=== PATIENT | female | born 1940 | race Caucasian/White ===

== ENCOUNTER 2022-01-19 07:44 | Inpatient (IN) ==
[2022-01-19 07:48] VITALS: BMI 21.9
[2022-01-19 08:06] LABS: ABG ALLEN TEST POS; ABG BASE EXCESS 0.9 mmol/L (-2.0-2.0); ABG HCO3 23.8 mmol/L (22-26)
--- NOTE | 2022-01-19 08:20 | DR.SOBA ---
HPI Time Seen Time Seen by Provider: 01/19/22 08:19 Primary Care Physician Primary Care Physician: KIRA HPI Comment HPI Comment: PATIENT IS Complaints Chief Complaint Doctors Comments: INCREASING SOB TIMES ONE DAY. Chief Complaint:: PT. C/O INCREASED SHORTNESS OF BREATH AND BACK PAIN. SHORTNESS OF BREATH BEGAN LAST NIGHT BUT WORSENED THIS MORNING. PT. STATES SHE CAN'T TAKE A DEEP BREATH. PT. WAS DIAGNOSED WITH BILATERAL PE ON WEDNESDAY AND HAS BEEN TAKING ELIQUIS. COVID-19 Coronavirus risk:travel/contact w/high risk person: No Has patient experienced Coronavirus symptoms: Yes Coronavirus symptoms experienced: Shortness of Breath Reviewed Nurses Notes Reviewed: Yes Source History Provided: Patient and Family Member Mode of Arrival Mode of Arrival: Wheelchair Timing Onset of Chief Complaint: 01/18/22 Duration Duration: Days Context Onset:: At Rest History of:: None Currently on:: Neither Prehospital Care:: None Modifying Factors Worsens:: Exertion Improves:: Rest and Sitting Up Associated Signs and Symptoms Associated Signs and Symptoms: Cough, Nasal Congestion and Chest Pain If Chest Pain Quality: Sharp If Cough Cough: Productive and Clear PMH PMH Past Medical History: Yes Past Medical History: Hypertension Past Medical History Comment: PE Past Surgical History: Yes Surgical History: Ortho Surgery Family History History of Family Medical Conditions: No Social History Does patient currently use any type of tobacco product: No Have you used tobacco products in the last 12 months: No Type of Tobacco Use: None Does any household member use tobacco: No Alcohol Use: None Do you use any recreational Drugs:: No Lives With: Spouse Lives Where: Home Travel Risk Coronavirus risk:travel/contact w/high risk person: No Has patient experienced Coronavirus symptoms: Yes Coronavirus symptoms experienced: Shortness of Breath Infectious screening In the last 2 months have you had wt loss of >10#?: NO Have you had fever, night sweats or hemotysis?: No Have you traveled outside the country in the last 6 months?: No Isolation: Standard ROS Review of Systems Constitutional: See HPI, Weakness and Fatigue; negative Fever Eyes: No Symptoms Reported and See HPI ENTM: See HPI, Nose Discharge and Nose Congestion Respiratoy: See HPI, Productive Cough and Short of Breath Cardiovascular: See HPI and Chest Pain Gastrointestinal/Abdominal: No Symptoms Reported Genitourinary: No Symptoms Reported and See HPI; negative Dysuria Neurological: No Symptoms Reported and See HPI PE Vital Signs Vitals: Pulse Rate 88 Respiratory Rate 33 Blood Pressure 132/62 O2 Sat by Pulse Oximetry 98 General Limitations: No Limitations ROR Labs Reviewed Result Diagrams: 01/19/22 07:46 01/19/22 07:46 Laboratory: WBC 15.9 X10^3/uL (3.6-10.0) H 01/19/22 07:46 RBC 4.70 X10^6/uL (3.5-5.4) 01/19/22 07:46 Hgb 14.4 g/dL (12.0-16.0) 01/19/22 07:46 Hct 42.3 % (36.0-47.0) 01/19/22 07:46 MCV 90.1 fL (80.0-100.0) 01/19/22 07:46 MCH 30.7 pg (27.0-34.0) 01/19/22 07:46 MCHC 34.0 g/dL (33.0-35.0) 01/19/22 07:46 RDW 13.4 % (11.6-16.5) 01/19/22 07:46 Plt Count 257 X10^3/uL (150.0-450.0) 01/19/22 07:46 MPV 7.5 fL (7.4-11.0) 01/19/22 07:46 Neut % (Auto) 68.7 % (42.0-75.0) 01/19/22 07:46 Lymph % (Auto) 15.4 % (21.0-51.0) L 01/19/22 07:46 [place] % (Auto) 12.8 % (0.0-13.0) 01/19/22 07:46 Eos % (Auto) 2.7 % (0.9-2.9) 01/19/22 07:46 Baso % (Auto) 0.4 % (0.2-1.0) 01/19/22 07:46 Neut # (Auto) 10.9 x10^3/uL (2.2-4.8) H 01/19/22 07:46 Lymph # (Auto) 2.4 X10^3/uL (1.3-2.9) 01/19/22 07:46 [place] # (Auto) 2.0 x10^3/uL (0.3-0.8) H 01/19/22 07:46 Eos # (Auto) 0.4 x10^3/uL (0.0-0.2) H 01/19/22 07:46 Baso # (Auto) 0.1 X10^3/uL (0.0-0.1) 01/19/22 07:46 Absolute Nucleated RBC 0.0 /100WBC 01/19/22 07:46 PT 18.1 SECONDS (11.8-14.3) 01/19/22 07:46 INR Target Range - 01/19/22 07:46 INR 1.56 (0.8-1.3) H 01/19/22 07:46 APTT 32.0 SECONDS (22.9-36.5) 01/19/22 07:46 PTT Comment - 01/19/22 07:46 Sample Site Rra 01/19/22 08:02 ABG pH 7.480 (7.35-7.45) H 01/19/22 08:02 ABG pCO2 32.0 mmHg (35.0-45.0) L 01/19/22 08:02 ABG pO2 76.0 mmHg (80.0-100.0) L 01/19/22 08:02 ABG HCO3 23.8 mmol/L (22-26) 01/19/22 08:02 ABG O2 Saturation 96.0 % (90-100) 01/19/22 08:02 ABG Base Excess 0.9 mmol/L (-2.0-2.0) 01/19/22 08:02 Davidson Test Pos 01/19/22 08:02 A-a Gradient 34.0 mmHg 01/19/22 08:02 FiO2 21.0 01/19/22 08:02 Blood Gas Comments Pt hortencia well eb 01/19/22 08:02 Sodium 139 mmol/L (136-145) 01/19/22 07:46 Corrected Sodium TNP 01/19/22 07:46 Potassium 3.8 mmol/L (3.5-5.1) 01/19/22 07:46 Chloride 103 mmol/L (98-107) 01/19/22 07:46 Carbon Dioxide 27.4 mmol/L (21-32) 01/19/22 07:46 BUN 12 mg/dL (7-18) 01/19/22 07:46 Creatinine 0.96 mg/dL (0.55-1.02) 01/19/22 07:46 Est GFR (MDRD) Af Amer > 60 (>60) 01/19/22 07:46 Est GFR (MDRD) Non-Af 59 (>60) 01/19/22 07:46 Glucose 108 mg/dL (65-99) H 01/19/22 07:46 Calcium 8.8 mg/dL (8.5-10.1) 01/19/22 07:46 Corrected Calcium 9.5 mg/dL (8.5-10.1) 01/19/22 07:46 Total Bilirubin 0.90 mg/dL (0.2-1.0) 01/19/22 07:46 AST 19 Units/L (15-37) 01/19/22 07:46 ALT 53 Units/L (12-78) 01/19/22 07:46 Alkaline Phosphatase 63 Units/L (46-116) 01/19/22 07:46 Creatine Kinase 18 Units/L (26-192) L 01/19/22 07:46 Troponin I High Sens 7.0 ng/L (4.0-60.0) 01/19/22 07:46 B-Natriuretic Peptide 25.2 pg/mL (0-79) 01/19/22 07:46 Total Protein 6.7 g/dL (6.4-8.2) 01/19/22 07:46 Albumin 3.1 g/dL (3.4-5.0) L 01/19/22 07:46 Globulin 3.6 g/dL (2.5-4.5) 01/19/22 07:46 Albumin/Globulin Ratio 0.9 Ratio (1.1-2.1) L 01/19/22 07:46 Opioid Opioid Risk Tool Age ([place]att box if 16-45): No History of Preadolescent Sexual Abuse: No Total: 0 Total Score Risk Category: Low Risk Copyright: Cr HUERTA predicting aberrant behaviors Discharge Plan Discharge Plan Patient Disposition: 01 HOME, SELF-CARE Condition: Stable Orders to Discharge Patient Discharge Orders: Transfer (Routine); Ordered 01/19/22 Ordered By: TURNER CLARK
[2022-01-19 08:35] LABS: BASOPHILS # (AUTO) 0.1 X10^3/uL (0.0-0.1); BASOPHILS % (AUTO) 0.4 % (0.2-1.0); EOSINOPHILS # (AUTO) 0.4 x10^3/uL (0.0-0.2); EOSINOPHILS % (AUTO) 2.7 % (0.9-2.9); HEMATOCRIT 42.3 % (36.0-47.0); HEMOGLOBIN 14.4 g/dL (12.0-16.0); LYMPHOCYTES # (AUTO) 2.4 X10^3/uL (1.3-2.9); LYMPHOCYTES % (AUTO) 15.4 % (21.0-51.0); MEAN CORPUSCULAR HEMOGLOBIN 30.7 pg (27.0-34.0); MEAN CORPUSCULAR VOLUME 90.1 fL (80.0-100.0); MEAN PLATELET VOLUME 7.5 fL (7.4-11.0); MONOCYTES % (AUTO) 12.8 % (0.0-13.0); NEUTROPHILS # (AUTO) 10.9 x10^3/uL (2.2-4.8); NEUTROPHILS % (AUTO) 68.7 % (42.0-75.0); RED CELL DISTRIBUTION WIDTH 13.4 % (11.6-16.5); WHITE BLOOD COUNT 15.9 X10^3/uL (3.6-10.0)
--- NOTE | 2022-01-19 08:38 | RAD ---
HISTORYSHORT OF BREATHSTUDYCHEST, 1 [id number]/22/2022FINDINGSThe cardiomediastinal silhouette is stable. No acute airspace disease. No pneumothorax or effusion. The bony thorax appears intact.IMPRESSIONNo acute cardiopulmonary disease.Electronically signed by: AVA BURK (Jan 19, 2022 08:37:07)
[2022-01-19 08:45] LABS: ALANINE AMINOTRANSFERASE 53 Units/L (12-78); ALBUMIN 3.1 g/dL (3.4-5.0); ALKALINE PHOSPHATASE 63 Units/L (46-116); ASPARTATE AMINO TRANSFERASE 19 Units/L (15-37); BLOOD UREA NITROGEN 12 mg/dL (7-18); CALCIUM 8.8 mg/dL (8.5-10.1); CARBON DIOXIDE 27.4 mmol/L (21-32); CHLORIDE 103 mmol/L (98-107); COR CA(FOR HYPOALB) 9.5 mg/dL (8.5-10.1); CREATINE KINASE 18 Units/L (26-192); CREATININE 0.96 mg/dL (0.55-1.02); SODIUM 139 mmol/L (136-145); TOTAL PROTEIN 6.7 g/dL (6.4-8.2); eGFR NON BLACK RACES 59 (>60)
[2022-01-19] MEDS ORDERED: FORTAZ or TAZICEF VIAL INJ 2 G in NS 100 ML IV 100 ML IV ONE (10:18)
[2022-01-19] MEDS ORDERED: HEPARIN SODIUM INJ 5000 UNITS IVP ONE ×2 (10:22→17:13)
[2022-01-19] MEDS ORDERED: HEPARIN SODIUM INJ 5000 UNITS ONE (10:25)
[2022-01-19] MEDS ORDERED: FORTAZ or TAZICEF VIAL INJ ONE (10:25)
[2022-01-19] MEDS ORDERED: HEPARIN SODIUM IN D5W 25,000 UNITS/500 ML BAG ONE (10:26)
[2022-01-19] MEDS ORDERED: NS 100 ML IV 100 ML ONE (10:26)
[2022-01-19] MEDS ORDERED: NS 1/2 1,000 ML IV 1,000 ML IV ONE (10:26)
[2022-01-19] MEDS ORDERED: MORPHINE SULFATE INJ 2 MG INJ IVP PRN (10:30)
[2022-01-19] MEDS ORDERED: ZOFRAN INJ 4 MG VIAL IVP PRN (10:30)
[2022-01-19] MEDS: HEPARIN SODIUM IN D5W 25,000 UNITS/500 ML BAG IV PRN (10:57)
[2022-01-19] MEDS: NS 1/2 1,000 ML IV 1,000 ML IV SCH (10:58)
[2022-01-19 11:05] LABS: BILIRUBIN,URINE NEGATIVE (NEGATIVE); BLOOD/HEMOGLOBIN,URINE 5+ (NEGATIVE); GLUCOSE, URINE NEGATIVE (NEGATIVE); KETONES,URINE NEGATIVE (NEGATIVE); LEUKOCYTE ESTERASE ,URINE NEGATIVE (NEGATIVE); NITRITES,URINE NEGATIVE (NEGATIVE); PROTEIN,URINE 1+ (NEGATIVE); UROBILINOGEN,URINE NORMAL (NORMAL)
[2022-01-19 11:27] LABS: APPEARANCE,URINE CLEAR (CLEAR); COLOR,URINE DARK YELLOW (YELLOW)
[2022-01-19] MEDS ORDERED: DUONEB 0.5 MG/3 MG (3 mL) NEB SCH (11:27)
[2022-01-19] MEDS ORDERED: NS 1/2 1,000 ML IV 1,000 ML IV SCH (11:27)
[2022-01-19 11:28] LABS: BACTERIA,URINE NEGATIVE /HPF (NEGATIVE); RBC,URINE 30-50 /HPF (0-3); SQUAMOUS EPITHELIAL CELL,UR RARE /HPF (NEGATIVE)
[2022-01-19 12:03] LABS: ERYTHROCYTE SEDIMENTATION RATE 37 MM/HOUR (0-20)
[2022-01-19] MEDS: FORTAZ or TAZICEF VIAL INJ 1 G in NS 100 ML IV 100 ML IV SCH ×3 (12:04→20:59)
[2022-01-19] MEDS: NORCO 5/325 MG TAB PO PRN (12:42)
[2022-01-19] MEDS ORDERED: KLOR-CON PO PRN (19:28)
[2022-01-19] MEDS ORDERED: KLONOPIN TAB 0.5 MG ONE (19:59)
[2022-01-19] MEDS: K-DUR TAB 20 MEQ PO PRN (20:45)
[2022-01-19] MEDS: KLONOPIN TAB 0.5 MG PO SCH (20:46)
[2022-01-19 20:52] LABS: BILIRUBIN,URINE NEGATIVE (NEGATIVE); BLOOD/HEMOGLOBIN,URINE 5+ (NEGATIVE); GLUCOSE, URINE 3+ (NEGATIVE); KETONES,URINE NEGATIVE (NEGATIVE); LEUKOCYTE ESTERASE ,URINE NEGATIVE (NEGATIVE); NITRITES,URINE NEGATIVE (NEGATIVE); PROTEIN,URINE 1+ (NEGATIVE); UROBILINOGEN,URINE NORMAL (NORMAL)
[2022-01-19 21:16] LABS: APPEARANCE,URINE CLEAR (CLEAR); COLOR,URINE YELLOW (YELLOW)
[2022-01-19 21:23] LABS: BACTERIA,URINE NEGATIVE /HPF (NEGATIVE); RBC,URINE 20-30 /HPF (0-3); SQUAMOUS EPITHELIAL CELL,UR NEGATIVE /HPF (NEGATIVE)
[2022-01-19] MEDS: DUONEB 0.5 MG/3 MG (3 mL) NEB SCH (21:40)
[2022-01-20] MEDS: NS 1/2 1,000 ML IV 1,000 ML IV SCH ×3 (00:24→14:22)
[2022-01-20] MEDS ORDERED: NS 1/2 1,000 ML IV 1,000 ML IV ONE (05:00)
[2022-01-20] MEDS: NORCO 5/325 MG TAB PO PRN (05:11)
[2022-01-20] MEDS: FORTAZ or TAZICEF VIAL INJ 1 G in NS 100 ML IV 100 ML IV SCH ×3 (05:32→21:13)
[2022-01-20 06:02] LABS: BASOPHILS # (AUTO) 0.1 X10^3/uL (0.0-0.1); BASOPHILS % (AUTO) 0.7 % (0.2-1.0); EOSINOPHILS # (AUTO) 0.3 x10^3/uL (0.0-0.2); EOSINOPHILS % (AUTO) 2.3 % (0.9-2.9); HEMATOCRIT 36.4 % (36.0-47.0); HEMOGLOBIN 12.5 g/dL (12.0-16.0); LYMPHOCYTES # (AUTO) 2.1 X10^3/uL (1.3-2.9); LYMPHOCYTES % (AUTO) 15.9 % (21.0-51.0); MEAN CORPUSCULAR HEMOGLOBIN 30.5 pg (27.0-34.0); MEAN CORPUSCULAR HGB CONC 34.4 g/dL (33.0-35.0); MEAN CORPUSCULAR VOLUME 88.8 fL (80.0-100.0); MEAN PLATELET VOLUME 7.2 fL (7.4-11.0); MONOCYTES # (AUTO) 1.6 x10^3/uL (0.3-0.8); NEUTROPHILS # (AUTO) 9.2 x10^3/uL (2.2-4.8); NEUTROPHILS % (AUTO) 69.1 % (42.0-75.0); WHITE BLOOD COUNT 13.4 X10^3/uL (3.6-10.0)
[2022-01-20 06:06] LABS: ALANINE AMINOTRANSFERASE 39 Units/L (12-78); ALBUMIN 2.3 g/dL (3.4-5.0); ALKALINE PHOSPHATASE 53 Units/L (46-116); ASPARTATE AMINO TRANSFERASE 13 Units/L (15-37); BLOOD UREA NITROGEN 7 mg/dL (7-18); CALCIUM 8.1 mg/dL (8.5-10.1); CARBON DIOXIDE 23.4 mmol/L (21-32); CHLORIDE 103 mmol/L (98-107); COR CA(FOR HYPOALB) 9.5 mg/dL (8.5-10.1); COR NA(FOR HYPERGLY) 135 mmol/L (136-145); CREATININE 0.77 mg/dL (0.55-1.02); MAGNESIUM 1.6 mg/dL (1.7-2.9); SODIUM 135 mmol/L (136-145); TOTAL PROTEIN 5.7 g/dL (6.4-8.2); eGFR NON BLACK RACES > 60 (>60)
[2022-01-20] MEDS ORDERED: HEPARIN SODIUM INJ 5000 UNITS IVP ONE (06:27)
[2022-01-20] MEDS ORDERED: HEPARIN SODIUM INJ 5000 UNITS ONE (06:29)
[2022-01-20] MEDS: DUONEB 0.5 MG/3 MG (3 mL) NEB SCH ×3 (06:35→21:09)
[2022-01-20] MEDS: MAGNESIUM SULFATE 1 GRAM/100 mL PREMIX 1 G/100 ML BAG IV PRN ×2 (06:43→08:53)
[2022-01-20] MEDS: K-DUR TAB 20 MEQ PO PRN (06:45)
[2022-01-20] MEDS: CRESTOR TAB 10 MG PO SCH (08:54)
[2022-01-20] MEDS: TOPROL XL PO SCH (08:56)
--- NOTE | 2022-01-20 09:46 | DR.H&P ---
H&P - History & Physical for Day of: H&P Date: 01/19/22 - Chief Complaint Chief Complaint: SOB, BACK PAIN, COVID POSITIVE, MULTIPLE PULMONARY EMBOLI - History of Present Illness History of Present Illness: IS A 81 YEAR OLD PATIENT OF OURS. SHE PRESENTED TO THE ER WITH COMPLAINTS OF INCREASING SHORTNESS OF BREATH AND MID TO LOWER BACK PAIN. SHE REPORTS THAT SHORTNESS OF BREATH STARTED ON 01/16/22, BUT HAS PROGRESSIVELY GOTTEN WORSE. SHE WAS RECENTLY DIAGNOSED WITH COVID AND MULTIPLE PULMONARY EMBOLI. CHEST CTA ON 01/16 REVEALED: Exam positive for incompletely occlusive acute pulmonary thromboembolic disease involving the arterial branches to the right upper lobe and left upper lobe and and segmental branches in the right upper lobe and bilateral lower lobes. Two right lower lobe pulmonary nodules measuring 2.[address] follow-up in 1 year. Old granulomatous disease. 2.2 x 1.6 cm right breast mass requiring further evaluation with mammography and likely sonography at the time of mammography. SHE WAS STARTED ON ELIQUIS AND DISCHARGED HOME FROM THE ER AT THAT TIME, SHE REFUSED ADMISSION. UPON ARRIVAL TO THE ER TODAY, EXAMINATION REVEALED MODERATE TENDERNESS TO THE THORACIC AND LUMBAR SPINE. PATIENT REPORTS THAT PAIN IS WORSE WITH MOVEMENT OR ACTIVITY. PAIN IS USUALLY SOME BETTER WITH REST. VITALS WERE: 98.2-96-23-97%-162/74. LABS WERE OBTAINED. WBC 15.9, RBC 4.70, HGB 14.4, HCT 42.3, PLT COUNT 257, INR 1.56, SODIUM 139, POTASSIUM 3.8, CHLORIDE 103, BUN 12, CREATININE 0.96, GLUCOSE 108, CALCIUM 8.8, AST 19, ALT 53, ALK PHOS 63, TOTAL PROTEIN 6.7, ALBUMIN 3.1, CREATININE 18, CRP 88.70. TROPONIN WAS NEGATIVE. ABG WAS OBTAINED AND REVEALED: PH 7.480, PC02 32, P02 76, HC03 23.8, 02 SAT 96, A-A GRADIENT 34, FI02 21.0. COVID-19 POSITIVE. URINALYSIS REVEALED: WBC NONE SEEN, RBC 30-50, BACTERIA NEGATIVE, LEUKOCYTES NEGATIVE, BLOOD 5+. A CHEST XRAY WAS OBTAINED AND REVEALED: The cardiomediastinal silhouette is stable. No acute airspace disease. No pneumothorax or effusion. The bony thorax appears intact. EKG REVEALED NORMAL SINUS RHYTHM WITH HR 93. SHE WAS ADMITTED TO THE HOSPITAL FOR FURTHER EVALUATION AND TREATMENT OF BILATERAL PULMONARY EMBOLISM AND RESPIRATORY DISTRESS. DUE TO HEMATURIA AND LOW BACK PAIN, WE WILL OBTAIN AN ABDOMEN/PELVIS CT WITHOUT CONTRAST TO RULE OUT RENAL CALCULI. WE WILL ALSO OBTAIN A THORACIC AND LUMBAR SPINE CT DUE TO PERSISTENT BACK PAIN. SHE WAS STARTED ON A HEPARIN DRIP, ZOFRAN 4MG IV Q8H PRN, 1/2NS AT 50 ML/HR, FORTAZ 1G IV Q8H, NORCO 5/325MG IV Q6H PRN, CRESTOR 5MG HS ON MON,WED,FRI, TOPROL XL 25MG PO DAILY, COLACE 200MG PO DAILY, AND THE POTASSIUM AND MAGNESIUM PROTOCOLS. OTHERWISE, WE PLAN TO FOLLOW-UP WITH AM LABS AND CONTINUE TO MONITOR. TIME SPENT ON CLINICAL ASSESSMENT, REVIEWING LABS AND IMAGING, DECISION MAKING, AND DOCUMENTATION GREATER THAN 75 MINUTES. - Past Medical History Past Medical History: Dyslipidemia, Hypertension - Past Surgical History Surgical History: Cholecystectomy, Ortho Surgery - Family History Family Medical History: Hypertension - Social History Does patient currently use any type of tobacco product: No Have you used tobacco products in the last 12 months: No Type of Tobacco Use: None Does any household member use tobacco: No Alcohol Use: None Drug Use: None - Medications Home Medications: sulfamethoxazole [From Bactrim] Allergy (Verified 01/19/22 07:48) trimethoprim [From Bactrim] Allergy (Verified 01/19/22 07:48) CONTINUE taking the following medications apixaban 5 mg tablet (Eliquis) 10 mg PO BID 01/19/22 [History] clonazepam 0.5 mg tablet 0.5 mg PO QHS 01/19/22 [History] metoprolol succinate 25 mg tablet,extended release 24 hr 1 tab PO QDAY 01/19/22 [History] rosuvastatin 5 mg tablet 1 tab PO .3XW 01/19/22 [History] - Review of Systems Constitutional: No Symptoms Reported Eyes: No Symptoms Reported ENT: No Symptoms Reported Respiratory: See HPI, Cough, Dry, Shortness of Breath, SOB with Excertion Cardiovascular: No Symptoms Reported Gastrointestinal: No Symptoms Reported Genitourinary: Hematuria Musculoskeletal: See HPI, Back Pain Skin: No Symptoms Reported Neurological: No Symptoms Reported - Physical Exam Vital Signs: Temperature 97.9 F Pulse Rate 98 Respiratory Rate 20 Blood Pressure 149/69 O2 Sat by Pulse Oximetry 95 Oriented: Normal Eyes: Normal Ear: Normal Nose: Normal Throat: Normal Respiratory: Diminished Throughout Cardiovascular: Normal : Normal Auscultation: Bowel Sounds: Normal Palpation: Normal Tenderness: Normal Skin: Normal Musculoskeletal: Back:Thoracic, Back:Lumbar, Tender Psychiatric: Normal Mood Description: Calm Affect: Normal Speech Pattern: Clear - Assessment/Plan (1) Multiple pulmonary emboli Status: Acute Plan: ADMIT, HEPARIN DRIP, ZOFRAN 4MG IV Q8H PRN, 1/2NS AT 50 ML/HR, FORTAZ 1G IV Q8H, NORCO 5/325MG IV Q6H PRN, CRESTOR 5MG HS ON MON,WED,FRI, TOPROL XL 25MG PO DAILY, COLACE 200MG PO DAILY, AND THE POTASSIUM AND MAGNESIUM PROTOCOLS (2) COVID-19 Status: Acute (3) Acute bronchitis Qualifiers: Bronchitis organism: unspecified organism Qualified Code(s): J20.9 - Acute bronchitis, unspecified Status: Acute (4) HTN (hypertension) Qualifiers: Hypertension type: primary hypertension Qualified Code(s): I10 - Essential (primary) hypertension Status: Chronic (5) Hyperlipidemia Qualifiers: Hyperlipidemia type: mixed hyperlipidemia Qualified Code(s): E78.2 - Mixed hyperlipidemia Status: Chronic - Allergies Allergies/Adverse Reactions: Allergies Allergy/AdvReac Type Severity Reaction Status Date / Time sulfamethoxazole Allergy Verified 01/19/22 07:48 [From Bactrim] trimethoprim [From Bactrim] Allergy Verified 01/19/22 07:48
[2022-01-20] MEDS: COLACE CAP 100 MG PO SCH (10:30)
--- NOTE | 2022-01-20 10:31 | CT ---
HISTORYINTRACTABLE BACK PAINSTUDYTHORACIC SPINE W/O CONCOMPARISONNoneTECHNIQUEAxial images through the thoracic spine were performed without contrast. CT scan was performed following ALARA (As low as Reasonably Achievable).Coronal and Sagittal reformatted images were performed.FINDINGSThere is preservation of the thoracic kyphosis, there is no evidence of acute fractures. The included lungs demonstrate biapical fibrosis right more than left, there is also bibasal linear radiopacities probably atelectasisNo adrenal masses, there is a right renal cyst with Hounsfield units of 6 measuring 2.6 centimetersNo retroperitoneal masses. The vertebral height and disc spaces are preserved. There is no evidence of central osseous spinal canal stenosis. No dominant severe neural foraminal stenosis.There is no anterolisthesis or retrolisthesis.IMPRESSIONNo acute fractures of the thoracic spine. Vertebral height and disc spaces are preserved with minimal vacuum phenomenon at T5-T6.Electronically signed by: Sindi Mcgee (Jan 20, 2022 10:29:40)
--- NOTE | 2022-01-20 10:38 | CT ---
HISTORYINTRACTABLE BACK PAINSTUDYLUMBAR SPINE W/O CONCOMPARISONNoneTECHNIQUEMultiple axial images of the lumbar spine were obtained from the thoracolumbar junction to the sacrum without the administration of IV contrast. Sagittal and coronal reformats were performed and reviewed. Dose reduction techniques including Automated Exposure Control (AEC) and adjustment of mA and kV were utilized.FINDINGSAlignment of the lumbar spine is maintained. No evidence for acute fracture or subluxation can be identified. No central canal compromise by bony osteophyte formation or soft tissue components can be identified. Mild degenerative disc changes are noted at L3 through S1 however there is no significant stenosis appreciated. There is some [id number] neural foraminal narrowing and central canal stenosis at L5-S1.. The surrounding soft tissues demonstrate probable renal cyst.IMPRESSIONNo acute bony findings are identified.Electronically signed by: GREGORY ABBASI (Jan 20, 2022 10:36:46)
--- NOTE | 2022-01-20 10:41 | CT ---
HISTORYSTONE SEARCHSTUDYABDOMEN/PELVIS W/O CONCOMPARISONNone availableTECHNIQUE: Axial images through the abdomen and pelvis were performed without contrast.CT scan was performed following ALARA (As low as Reasonably Achievable).Coronal and Sagittal reformatted images were performed.FINDINGSThe lung bases demonstrate increase of the interstitial markings with some subpleural radiopacities likely subsegmental atelectasis with areas of fibrosis.In the right breast, there is a well-circumscribed 2.3 x 1.3 centimeter nodule follow-up with ultrasound recommended.The liver demonstrate no focal lesions for noncontrast CT. The spleen is nonenlarged.Patient is status post cholecystectomy. The pancreas demonstrate no focal abnormality, there is no intra or extrahepatic biliary dilatation, the stomach is no significant distended.There is no adrenal masses. There are bilateral normal-sized kidneys without hydronephrosis, no renal calculus, no evidence of obstructive ureteral stones, there is a lower pole right renal cyst measuring approximately 2.6 centimeter, there is also a renal cysts in the left lower pole measuring approximately 2 centimeters. There are scattered parapelvic cysts in the left kidneyNo retroperitoneal jazz, s no focal dilatation of the abdominal aorta, there is no colitis, the terminal ileum is unremarkable, no appendicitis.Pelvis: No free fluid, the urinary bladder is mildly distended. There is a left hip prosthesis producing artifact. There is osteoarthrosis of the right hip, the uterus is not present, no adnexal masses, no evidence of diverticulitis.Bone windows no evidence of aggressive bone lesions. No acute fracturesIMPRESSIONSubsegmental atelectasis in the bases with areas of fibrosisRight breast 2.3 x 1.3 centimeter nodule follow-up with ultrasound recommended.Moderate right hip osteoarthrosis.Bilateral normal-sized kidneys without hydronephrosis, no renal calculus or obstructive ureteral stone. Multiple renal cystsElectronically signed by: Sindi Mcgee (Jan 20, 2022 10:39:53)
[2022-01-20] MEDS: HEPARIN SODIUM IN D5W 25,000 UNITS/500 ML BAG IV PRN (15:57)
[2022-01-20] MEDS: SOLU-Medrol 40 MG VIAL IVP SCH (21:11)
[2022-01-20] MEDS: KLONOPIN TAB 0.5 MG PO SCH (21:14)
[2022-01-21 01:50] LABS: BASOPHILS # (AUTO) 0.1 X10^3/uL (0.0-0.1); LYMPHOCYTES # (AUTO) 0.4 X10^3/uL (1.3-2.9); MONOCYTES # (AUTO) 0.4 x10^3/uL (0.3-0.8); NEUTROPHILS # (AUTO) 11.4 x10^3/uL (2.2-4.8)
[2022-01-21 02:00] LABS: ALANINE AMINOTRANSFERASE 40 Units/L (12-78); ALBUMIN 2.2 g/dL (3.4-5.0); ALKALINE PHOSPHATASE 67 Units/L (46-116); ASPARTATE AMINO TRANSFERASE 12 Units/L (15-37); BLOOD UREA NITROGEN 9 mg/dL (7-18); CALCIUM 8.5 mg/dL (8.5-10.1); CARBON DIOXIDE 22.5 mmol/L (21-32); CHLORIDE 103 mmol/L (98-107); COR CA(FOR HYPOALB) 9.9 mg/dL (8.5-10.1); COR NA(FOR HYPERGLY) 138 mmol/L (136-145); CREATININE 0.91 mg/dL (0.55-1.02); MAGNESIUM 1.8 mg/dL (1.7-2.9); SODIUM 134 mmol/L (136-145); TOTAL PROTEIN 5.9 g/dL (6.4-8.2); eGFR NON BLACK RACES > 60 (>60)
[2022-01-21 02:07] LABS: BASOPHILS % (AUTO) 0.7 % (0.2-1.0); EOSINOPHILS % (AUTO) 0.2 % (0.9-2.9); HEMATOCRIT 35.6 % (36.0-47.0); HEMOGLOBIN 12.1 g/dL (12.0-16.0); LYMPHOCYTES % (AUTO) 3.5 % (21.0-51.0); MEAN CORPUSCULAR HEMOGLOBIN 30.3 pg (27.0-34.0); MEAN CORPUSCULAR VOLUME 89.1 fL (80.0-100.0); MEAN PLATELET VOLUME 7.3 fL (7.4-11.0); MONOCYTES % (AUTO) 3.1 % (0.0-13.0); NEUTROPHILS % (AUTO) 92.5 % (42.0-75.0); RED CELL DISTRIBUTION WIDTH 13.2 % (11.6-16.5); WHITE BLOOD COUNT 12.4 X10^3/uL (3.6-10.0)
[2022-01-21 02:15] LABS: BAND NEUTROPHILS % 3 % (0-10); PLATELET MORPHOLOGY COMMENT NORMAL (NORMAL)
[2022-01-21] MEDS: MAGNESIUM SULFATE 1 GRAM/100 mL PREMIX 1 G/100 ML BAG IV PRN ×2 (02:17→03:25)
[2022-01-21] MEDS: NS 1/2 1,000 ML IV 1,000 ML IV SCH ×3 (02:48→13:59)
[2022-01-21] MEDS ORDERED: NS 1/2 1,000 ML IV 1,000 ML IV ONE (04:50)
[2022-01-21] MEDS: FORTAZ or TAZICEF VIAL INJ 1 G in NS 100 ML IV 100 ML IV SCH ×3 (05:12→21:07)
[2022-01-21] MEDS: SOLU-Medrol 40 MG VIAL IVP SCH ×3 (05:12→21:07)
[2022-01-21] MEDS: DUONEB 0.5 MG/3 MG (3 mL) NEB SCH ×3 (05:45→21:15)
[2022-01-21] MEDS: COLACE CAP 100 MG PO SCH (08:56)
[2022-01-21] MEDS: TOPROL XL PO SCH (08:57)
[2022-01-21] MEDS: CRESTOR TAB 10 MG PO SCH (08:57)
[2022-01-21] MEDS: HEPARIN SODIUM IN D5W 25,000 UNITS/500 ML BAG IV PRN (10:56)
[2022-01-21] MEDS ORDERED: TOPROL XL PO ONE (11:48)
[2022-01-21] MEDS ORDERED: TOPROL XL PO SCH (21:00)
[2022-01-21] MEDS: KLONOPIN TAB 0.5 MG PO SCH (21:06)
[2022-01-22] MEDS ORDERED: NS 1/2 1,000 ML IV 1,000 ML IV ONE (03:02)
[2022-01-22] MEDS: NS 1/2 1,000 ML IV 1,000 ML IV SCH (03:07)
[2022-01-22 04:54] LABS: BASOPHILS % (AUTO) 0.3 % (0.2-1.0); HEMATOCRIT 32.1 % (36.0-47.0); HEMOGLOBIN 11.2 g/dL (12.0-16.0); LYMPHOCYTES # (AUTO) 0.9 X10^3/uL (1.3-2.9); MEAN CORPUSCULAR HEMOGLOBIN 30.9 pg (27.0-34.0); MEAN CORPUSCULAR HGB CONC 34.9 g/dL (33.0-35.0); MEAN CORPUSCULAR VOLUME 88.4 fL (80.0-100.0); MEAN PLATELET VOLUME 7.5 fL (7.4-11.0); MONOCYTES # (AUTO) 0.7 x10^3/uL (0.3-0.8); MONOCYTES % (AUTO) 4.3 % (0.0-13.0); NEUTROPHILS # (AUTO) 14.1 x10^3/uL (2.2-4.8); NEUTROPHILS % (AUTO) 89.4 % (42.0-75.0); RED BLOOD COUNT 3.63 X10^6/uL (3.5-5.4); RED CELL DISTRIBUTION WIDTH 13.4 % (11.6-16.5); WHITE BLOOD COUNT 15.7 X10^3/uL (3.6-10.0)
[2022-01-22] MEDS: SOLU-Medrol 40 MG VIAL IVP SCH (05:00)
[2022-01-22] MEDS: DUONEB 0.5 MG/3 MG (3 mL) NEB SCH (05:03)
[2022-01-22] MEDS: FORTAZ or TAZICEF VIAL INJ 1 G in NS 100 ML IV 100 ML IV SCH (05:06)
[2022-01-22 05:10] LABS: ALANINE AMINOTRANSFERASE 31 Units/L (12-78); ALBUMIN 2.1 g/dL (3.4-5.0); ALKALINE PHOSPHATASE 60 Units/L (46-116); ASPARTATE AMINO TRANSFERASE 10 Units/L (15-37); BLOOD UREA NITROGEN 15 mg/dL (7-18); CALCIUM 8.6 mg/dL (8.5-10.1); CARBON DIOXIDE 22.3 mmol/L (21-32); CHLORIDE 105 mmol/L (98-107); COR CA(FOR HYPOALB) 10.1 mg/dL (8.5-10.1); COR NA(FOR HYPERGLY) 142 mmol/L (136-145); CREATININE 0.87 mg/dL (0.55-1.02); MAGNESIUM 1.9 mg/dL (1.7-2.9); SODIUM 137 mmol/L (136-145); TOTAL PROTEIN 5.7 g/dL (6.4-8.2); eGFR NON BLACK RACES > 60 (>60)
--- NOTE | 2022-01-22 05:45 | RAD ---
HISTORYBIL PULMONARY EMBOLISM Relevant Clinical InformationSTUDYCHEST, 1 [id number]/25/2022FINDINGSThe trachea is midline. The cardiac silhouette is unremarkable. The lungs are clear without focal infiltrate or effusion. The bony thorax is unremarkable.IMPRESSIONNo acute cardiopulmonary findings .Electronically signed by: Jamil Carrasco (Jan 22, 2022 05:43:46)
[2022-01-22] MEDS: COLACE CAP 100 MG PO SCH (08:40)
[2022-01-22] MEDS: MAGNESIUM SULFATE 1 GRAM/100 mL PREMIX 1 G/100 ML BAG IV PRN (08:40)
[2022-01-22] MEDS ORDERED: TOPROL XL PO SCH (09:00)
[2022-01-22] MEDS ORDERED: ELIQUIS PO SCH (10:00)
[2022-01-22 10:50] VITALS: BP 142/63
[2022-01-24 05:50] LABS: ANTI-NUCLEAR ANTIBODY TEST None Detected (None Detected)
[2022-01-24 05:53] LABS: PROTEIN C ACTIVITY 171 % (83-168); PROTHROMBIN G20210A Negative
== END 2022-01-22 11:31 | disposition home or self-care (01) | DRG 177 ==
LOC: ER 07:44 → ICU 10:23
PROVIDERS: ADMIT Internal Medicine; ATTEND Internal Medicine
DX: J20.8 Acute bronchitis due to other specified organisms; U07.1 COVID-19; I26.99 Other pulmonary embolism without acute cor pulmonale; R06.03 Acute respiratory distress; R07.89 Other chest pain; I10 Essential (primary) hypertension; E78.2 Mixed hyperlipidemia; I47.1 Supraventricular tachycardia; R70.0 Elevated erythrocyte sedimentation rate; R06.02 Shortness of breath; Z79.01 Long term (current) use of anticoagulants; R79.82 Elevated C-reactive protein (CRP); M54.89 Other dorsalgia; N63.10 Unspecified lump in the right breast, unspecified quadrant; R79.1 Abnormal coagulation profile